=== PATIENT | male | born 1940 | race Caucasian/White ===

== ENCOUNTER → 2016-09-14 | Outpatient (CLI) | payer OTHER ==
[~2016-09-14] MED LIST: NORCO 7.5-3251 EACH PO; OSELB75 PO
== END ==
LOC: RAD 12:33
DX: S22.31XA Fracture of one rib, right side, initial encounter for closed fracture (principal); M47.814 Spondylosis without myelopathy or radiculopathy, thoracic region; Z77.090 Contact with and (suspected) exposure to asbestos

== ENCOUNTER 2016-12-05 05:54 | Day surgery (SDC) | payer OTHER ==
[~2016-12-05] VITALS: Ht 177.8 cm; Wt 70.3 kg
--- NOTE | ~2016-12-05 | S ---
[facility] [place] [address] SURGICAL PATH RPT PROCEDURE Name: JOHN PAUL ROMAN Room #: DEP [facility] M.R.#: [id number] Admission: 12/05/16 Date of : 38 Discharge: 12/05/16 Report #: [id number] Path Case #: [id number] PATHOLOGY REPORT COLLECTION DATE: 12/05/2016 RECEIVED DATE: 12/05/2016 SUBMITTING PHYS: Dr. Estevan Elder OTHER PHYS: Dr. 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 - Negative for malignancy. - Appears completely excised. (IUV:meir; 12/07/2016) PATHOLOGIST: Bina Alonso M.D. REPORT ELECTRONICALLY SIGNED BY: Bina Alonso M.D. DATE/TIME: 12/07/2016 15:59 * * * * * * * * * * * * GROSS PATHOLOGY: The specimen is received in formalin labeled "John Paul Roman, left lower lid lesion". Received is a wedge resection of suresh-blue skin measuring 1.0 x 0.5 x 0.5 cm in greatest dimensions. The surgical margin is inked. The specimen is bisected and entirely submitted in cassette A1. (CAA; 12/06/2016) CLINICAL HISTORY: Pigmented lesion left lower lid INITIAL CPT CODE(S): A; 99613 Professional services performed by [facility] at [facility] [address] [place] [address] Technical services performed by [facility] at [address] [place] [id number]. [facility] [address] [place] [address] SURGICAL PATH RPT PROCEDURE Name: JOHN PAUL ROMAN Room #: DEP [facility] Eusebio#: [id number] Admission: 12/05/16 Date of : 38 Discharge: 12/05/16 Report #: [id number] Path Case #: [id number] [address] PHONE: [phone] DIRECTOR: Reuben Guerra M.D. * * * END OF REPORT * * *
[~2016-12-05 05:54] MED LIST changes: +AMARYL4 MG PO; +AMLODIPINE BESYL5 MG PO; +ARICEPT10 M1 PO; +ASPIR 8181 MG PO; +CITALOPRAM HBR40 MG PO; +COZAAR 50 MG TA50 M2 PO; +FISH OIL 1,2001 EAC4 PO; +GLUCOPHAGE1000 MG PO; +IMDUR 60 MG TAB60 M1 PO; +MULTIVITAMINS PO; +NAMENDA 10 MG T10 MG PO; +NITROLINGUAL12 GM TRANSLING; +PRAVACHOL20 MG PO; +TOPROL XL25 MG PO; +VITAMIN B COMP1 EACH PO
[2016-12-05 13:18] VITALS: BP 152/74
== END 2016-12-05 15:13 | disposition home or self-care (01) ==
LOC: OR 05:54 → TBA 05:55 → OR 10:13
DX: D18.09 Hemangioma of other sites (principal)
CPT/HCPCS: 50010; 50101; 50398; 51636; 56528; 56531; 62110; 62850; 70005

== ENCOUNTER → 2017-10-19 | Outpatient (CLI) | payer OTHER | LOC: MRI 06:11 → CAT 06:11 | DX: J98.4 Other disorders of lung (principal); I25.10 Atherosclerotic heart disease of native coronary artery without angina pectoris; I70.0 Atherosclerosis of aorta; R59.9 Enlarged lymph nodes, unspecified ==

== ENCOUNTER → 2018-01-10 | Outpatient (CLI) | payer OTHER | LOC: CAT 01-02 13:58 | DX: I25.10 Atherosclerotic heart disease of native coronary artery without angina pectoris (principal); J98.11 Atelectasis; J94.8 Other specified pleural conditions; I10 Essential (primary) hypertension; E11.9 Type 2 diabetes mellitus without complications; E78.5 Hyperlipidemia, unspecified ==

== ENCOUNTER → 2019-01-18 | Outpatient (CLI) | payer OTHER | LOC: RAD 16:09 | DX: R91.1 Solitary pulmonary nodule (principal); Z88.8 Allergy status to other drugs, medicaments and biological substances ==

== ENCOUNTER → 2019-04-05 | Outpatient (CLI) | payer OTHER | LOC: CAT 08:44 | DX: R91.1 Solitary pulmonary nodule (principal); I25.10 Atherosclerotic heart disease of native coronary artery without angina pectoris; I70.0 Atherosclerosis of aorta; Z90.49 Acquired absence of other specified parts of digestive tract ==

== ENCOUNTER → 2019-04-24 | Outpatient (CLI) | payer OTHER | LOC: PET 10:29 | DX: R91.1 Solitary pulmonary nodule (principal); J92.9 Pleural plaque without asbestos; I70.0 Atherosclerosis of aorta; I25.10 Atherosclerotic heart disease of native coronary artery without angina pectoris ==